=== PATIENT | male | born 1970 | race Caucasian/White ===

== ENCOUNTER 2016-07-08 17:24 | Emergency (ER) | payer OTHER ==
--- NOTE | ~2016-07-08 | CR151 ---
[facility] A Service of [facility] & [facility] RADIOLOGY TEXT RESULTS PATIENT: CHAN CHERY LOCATION: [place] : 74 UNIT #: [id number] AGE: [address]: Amita Travis APRN SEX: M ORDER DR: [id number] [facility] [address] [place], [place] [address] [id number] E MR#: [id number] Acc #: [id number] NAME: CHAN CHERY. : 1970 SEX: M STUDY DATE/TIME: 07/08/2016 19:38 UNIT: [facility] ROOM: STUDY DESCRIPTION: CR Hip Min 2 Views Rt Attending Physician: Amita Travis A.P.R.N. Ordering Physician: Amita Travis A.P.R.N. MEDICAL IMAGING REPORT This report is preliminary unless electronic signature is present EXAM Right hip and pelvis 07/08 INDICATIONS Right hip pain with weightbearing and abducting leg for 3 days. No trauma. FINDINGS AP pelvis was obtained, in addition to a frog-leg right hip. No comparison. No fracture or malalignment is seen. The femoral heads are normal without evidence of osteonecrosis. IMPRESSION Negative pelvis and right hip. Dictated by... Butch Weaver Jr., M.D. THIS IS AN ELECTRONICALLY VERIFIED REPORT Butch Weaver Jr., M.D. at 07/08/2016 10:24 PM HARDYK/rosa maria TD: 07/08/2016 21:33 JOB #: [id number] MEDICAL IMAGING REPORT Page 1 of 1 COPY
== END 2016-07-08 20:10 | disposition home or self-care (01) ==
LOC: CED 17:24 → CFTX 17:24
DX: S76.011A Strain of muscle, fascia and tendon of right hip, initial encounter (principal); F17.210 Nicotine dependence, cigarettes, uncomplicated; X58.XXXA Exposure to other specified factors, initial encounter; Y93.02 Activity, running; Y92.9 Unspecified place or not applicable
CPT/HCPCS: 73502; 96372; 99283; J1885